=== PATIENT | female | born 1995 ===

== ENCOUNTER 2019-01-03 23:57 | Inpatient (IN) | payer OTHER ==
[2019-01-04] MEDS ORDERED: ASPIR 8181 MG PO (07:41)
[2019-01-04] MEDS ORDERED: PRENATAL TABLE1 EAC1 PO (07:42)
== END 2019-01-12 17:49 | disposition home or self-care (01) | DRG 786 ==
LOC: ER 23:57 → OBS/DEL 01-04 00:12 → ER 01-04 07:17 → LDR 01-04 07:17 → OB/GYN 01-04 07:17
PROVIDERS: ADMIT Obstetrics & Gynecology
PROC: 4A1HXCZ Monitoring of Products of Conception, Cardiac Rate, External Approach (ICD-10-PCS; 2019-01-04)
PROC: BY4FZZZ Ultrasonography of Third Trimester, Single Fetus (ICD-10-PCS; 2019-01-04)
PROC: 4A033R1 Measurement of Arterial Saturation, Peripheral, Percutaneous Approach (ICD-10-PCS; 2019-01-09)
PROC: 10D00Z1 Extraction of Products of Conception, Low, Open Approach (ICD-10-PCS; principal; 2019-01-09 17:15)
DX: O82 Encounter for cesarean delivery without indication (principal); O34.211 Maternal care for low transverse scar from previous cesarean delivery; O60.14X0 Preterm labor third trimester with preterm delivery third trimester, not applicable or unspecified; O26.843 Uterine size-date discrepancy, third trimester; O26.893 Other specified pregnancy related conditions, third trimester; Z3A.34 34 weeks gestation of pregnancy; Z37.0 Single live birth

== ENCOUNTER 2020-11-30 23:22 | Emergency (ER) | payer OTHER ==
[~2020-11-30] VITALS: Ht 149.9 cm; Wt 44.5 kg
[~2020-11-30 23:22] MED LIST: ASPIR 8181 MG PO; PRENATAL TABLE1 EAC1 PO
[2020-12-01] MEDS ORDERED: PEPCID AC20 MG PO (11:42)
[2020-12-01] MEDS ORDERED: ONDANSETRON ODT4 MG PO (11:42)
[2020-12-01] MEDS ORDERED: INTESTINEX680 M1 PO (11:42)
[2020-12-01] MEDS ORDERED: LEVSIN/SL0.125 MG PO (11:42)
== END 2020-12-01 12:04 | disposition home or self-care (01) ==
LOC: ER 23:22 → EMR PED 23:34 → ER 12-01 12:04
DX: K52.89 Other specified noninfective gastroenteritis and colitis (principal); E86.0 Dehydration; E87.8 Other disorders of electrolyte and fluid balance, not elsewhere classified; Z03.818 Encounter for observation for suspected exposure to other biological agents ruled out

== ENCOUNTER 2021-11-01 14:14 | Emergency (ER) | payer OTHER ==
[~2021-11-01] VITALS: Ht 160 cm; Wt 43.5 kg
[~2021-11-01 14:14] MED LIST changes: +INTESTINEX680 M1 PO; +LEVSIN/SL0.125 MG PO; +ONDANSETRON ODT4 MG PO; +PEPCID AC20 MG PO
== END 2021-11-01 17:19 | disposition home or self-care (01) ==
LOC: ER 14:14
DX: K29.70 Gastritis, unspecified, without bleeding (principal)